=== PATIENT | male | born 1985 | race Caucasian/White ===

== ENCOUNTER 2020-12-11 01:04 | Observation (INO) | payer OTHER ==
[~2020-12-11] VITALS: Ht 182.9 cm; Wt 129.3 kg
--- NOTE | ~2020-12-11 | PROC ---
[facility] [address] [place] [address] PROCEDURE REPORT Name: GAUDENCIO ROSS Room: [address] Maxine Dover#: [id number] Admission: 12/11/20 Attend Phys: Diogenes Ambrocio Discharge: 12/12/20 Date of : 83 Report #: [id number] THIS REPORT FOR: cc: Marjorie Erickson MD, Jayne MD [facility],Medical Records Staff ~ For GI report, please see the Provation report in [employer] content. By: [id number] Records Staff CAYETANO /MARISA
[2020-12-11 01:23] VITALS: BP 161/99
[2020-12-11 01:58] LABS: ABSOLUTE LYMPHOCYTES 1.9 thou/uL (0.8-5.3); ABSOLUTE MONOCYTES 0.6 thou/uL (0.0-1.2); ABSOLUTE NEUTROPHILS 4.5 thou/uL (1.6-8.1); BASOPHILS 0.5 %; EOSINOPHILS 0.4 %; HEMATOCRIT 48.7 % (42.0-52.0); HEMOGLOBIN 16.7 gm/dL (14.0-18.0); LYMPHOCYTES 27.1 %; MCH 31.1 pg (26.0-34.0); MCHC 34.3 g/dL (28.0-37.0); MCV 90.9 fL (80.0-100.0); MPV 8.2 fl. (7.2-11.1); NUCLEATED RBCS 0 /100WBC; PLATELET COUNT* 311 thou/uL (150-400); RBC 5.35 mil/uL (4.50-6.00); RDW-CV 13.3 % (10.5-14.5); WBC 7.1 thou/uL (4.0-11.0)
[2020-12-11 01:58] LABS: URINE BILIRUBIN NEGATIVE (Negative); URINE BLOOD NEGATIVE (Negative); URINE CLARITY CLEAR; URINE COLOR STRAW; URINE GLUCOSE-RANDOM NEGATIVE (Negative); URINE KETONES NEGATIVE (Negative); URINE LEUKOCYTES-REFLEX NEGATIVE (Negative); URINE NITRITE-REFLEX NEGATIVE (Negative); URINE PROTEIN NEGATIVE (Negative); URINE SPECIFIC GRAVITY <= 1.005 (1.005-1.030); URINE UROBILINOGEN 0.2 E.U./dl (0.2-1.0)
[2020-12-11 02:01] LABS: CALCIUM 9.6 mg/dL (8.5-10.1); CREATININE 0.9 mg/dL (0.6-1.3); POTASSIUM 3.7 mmol/L (3.5-5.1)
[2020-12-11 03:11] LABS: AMP/METHAMP Negative (Negative); BARBITURATES Negative (Negative); BENZODIAZEPINES Negative (Negative); COCAINE Negative (Negative); METHADONE Negative (Negative); OPIATES Negative (Negative); PCP Negative (Negative); THC Negative (Negative)
[2020-12-11 04:08] LABS: ALBUMIN 4.3 g/dL (3.4-5.0); DIRECT BILIRUBIN 0.1 mg/dL (<0.1-0.3); TOTAL BILIRUBIN 0.6 mg/dL (<0.1-1.0); TOTAL PROTEIN 8.5 g/dL (6.4-8.2)
[2020-12-11 06:10] VITALS: BP 128/74
[2020-12-11 06:50] VITALS: BP 154/96
--- NOTE | 2020-12-11 07:37 | NUR ---
PATIENT ARRIVED ON FLOOR FROM ER ABOUT 0640. ADMISSION HISTORY AND ASSESSMENT WAS DONE IN ER PRIOR TO COMING TO THE FLOOR. PATIENT SETTLED IN ROOM AND ISTRUCTED TO CALL FOR HELP WHEN NEEDED. WILL CONTINUE TO MONITOR.
[2020-12-11 08:00] VITALS: BP 162/98
[2020-12-11 10:17] LABS: ABSOLUTE BASOPHILS 0.1 thou/uL (0.0-0.2); ABSOLUTE EOSINOPHILS 0.1 thou/uL (0.0-0.7); ABSOLUTE LYMPHOCYTES 2.3 thou/uL (0.8-5.3); ABSOLUTE MONOCYTES 0.7 thou/uL (0.0-1.2); ABSOLUTE NEUTROPHILS 3.1 thou/uL (1.6-8.1); BASOPHILS 0.9 %; HEMATOCRIT 45.5 % (42.0-52.0); HEMOGLOBIN 15.2 gm/dL (14.0-18.0); LYMPHOCYTES 37.4 %; MCH 30.5 pg (26.0-34.0); MCHC 33.5 g/dL (28.0-37.0); MCV 91.1 fL (80.0-100.0); MONOCYTES 10.6 %; MPV 8.1 fl. (7.2-11.1); NUCLEATED RBCS 0 /100WBC; PLATELET COUNT* 278 thou/uL (150-400); POLYS 50.1 %; RDW-CV 13.3 % (10.5-14.5); WBC 6.2 thou/uL (4.0-11.0)
[2020-12-11 10:29] LABS: ALBUMIN 3.9 g/dL (3.4-5.0); CALCIUM 8.8 mg/dL (8.5-10.1); CREATININE 0.8 mg/dL (0.6-1.3); POTASSIUM 3.7 mmol/L (3.5-5.1); TOTAL BILIRUBIN 0.7 mg/dL (<0.1-1.0); TOTAL PROTEIN 7.7 g/dL (6.4-8.2)
--- NOTE | 2020-12-11 14:23 | NUR ---
Pt is A&O. Resides at home with fiance. Independent. No DME. No hx of HH or SNF. Goal is home at dc, no needs at dc. Med Assist to screen for [facility]
[2020-12-11 16:10] VITALS: BP 169/110
[2020-12-11 17:13] LABS: % SATURATION 52 % (20-39); IRON 174 ug/dL (50-175)
--- NOTE | 2020-12-11 18:40 | NUR ---
PT ALERT AND ORIENTED X 4. PT TOLERATING PO INTAKE WITHOUT NAUSEA. PT GIVEN PRN PAIN MEDS ORDERED. PT STEADY WITHOUT ASSIST. IV FLUIDS REMAIN INFUSING. CALL LIGHT WITHIN REACH. WILL CONTINUE TO MONITOR.
[2020-12-11 22:00] VITALS: BP 158/90
[2020-12-12 04:55] LABS: ABSOLUTE EOSINOPHILS 0.1 thou/uL (0.0-0.7); ABSOLUTE LYMPHOCYTES 1.5 thou/uL (0.8-5.3); ABSOLUTE MONOCYTES 0.6 thou/uL (0.0-1.2); BASOPHILS 0.8 %; EOSINOPHILS 1.5 %; HEMATOCRIT 42.4 % (42.0-52.0); HEMOGLOBIN 14.4 gm/dL (14.0-18.0); LYMPHOCYTES 29.4 %; MCHC 33.8 g/dL (28.0-37.0); MCV 91.5 fL (80.0-100.0); MONOCYTES 11.3 %; MPV 8.2 fl. (7.2-11.1); NUCLEATED RBCS 0 /100WBC; PLATELET COUNT* 250 thou/uL (150-400); RBC 4.64 mil/uL (4.50-6.00); RDW-CV 13.2 % (10.5-14.5); WBC 5.2 thou/uL (4.0-11.0)
[2020-12-12 05:26] LABS: ALBUMIN 3.5 g/dL (3.4-5.0); CALCIUM 8.3 mg/dL (8.5-10.1); CREATININE 1.1 mg/dL (0.6-1.3); POTASSIUM 3.7 mmol/L (3.5-5.1); TOTAL BILIRUBIN 0.7 mg/dL (<0.1-1.0); TOTAL PROTEIN 6.9 g/dL (6.4-8.2)
--- NOTE | 2020-12-12 05:49 | NUR ---
PATIENT SLEPT PART OF THE NIGHT. IV REMAINS SALINE LOCKED. PATIENT WAS GIVEN PAIN MEDS NEEDED WITH SOME RELIEF. PATIENT TOLERATING REGULAR DIET. WILL CONTINUE TO MONITOR.
[2020-12-12 07:14] LABS: ESR (SEDRATE) 2 mm/hr (0-15)
--- NOTE | 2020-12-12 12:11 | NUR ---
Pt to have EGD today, GI following. Replete electrolytes. Continue IV pain meds and abx. Per Med Assist, Pt does not qualify for [facility].
[2020-12-12 13:09] LABS: CERULOPLASMIN 21.8 mg/dL (16.0-31.0)
[2020-12-12] MEDS ORDERED: PROTONIX40 M2 PO (14:28)
[2020-12-12] MEDS ORDERED: OXYCODONE HCL 55 MG PO ×3 (14:28→19:47)
[2020-12-12] MEDS ORDERED: ONDANSETRON HCL4 M2 PO (14:28)
[2020-12-12] MEDS ORDERED: ULTRAM50 MG PO (14:28)
[2020-12-12] MEDS ORDERED: CARAFATE1 GM PO (14:28)
[2020-12-12 17:32] VITALS: BP 152/109; BP 158/57
[2020-12-12 18:06] LABS: HEPATITIS B SURFACE AG Negative (Negative)
[2020-12-12 18:57] VITALS: BP 158/57
[2020-12-12 19:07] LABS: ANA INTERPRETATION Negative (())
[2020-12-12 20:08] VITALS: BP 158/57
--- NOTE | 2020-12-12 21:04 | NUR ---
Pt A&o x4 for entire shift. Vital signs stable. Pt pleasant with staff. Pt off unit for EGD this afternoon and returned around 1500. Pt given meds per MAR. Pt wants to go home this evening. Pt voiced concerns about pharmacy closing before he is able to get there. Oxycodone sent to [facility] on [address] in [place]. This nurse called and cancelled other orders sent to [facility] in [place]. Pt left unit ambulating with steady gait.
== END 2020-12-12 20:00 | disposition home or self-care (01) ==
LOC: M.ERS 01:04 → M.TBA-ER 04:34 → M.ORTHSURG 06:26
PROVIDERS: Emergency Medicine; Internal Medicine; Internal Medicine Gastroenterology; ADMIT Internal Medicine; ATTEND Internal Medicine
DX: K52.9 Noninfective gastroenteritis and colitis, unspecified (principal); K29.70 Gastritis, unspecified, without bleeding; Z20.822 Contact with and (suspected) exposure to COVID-19; R16.0 Hepatomegaly, not elsewhere classified; K76.0 Fatty (change of) liver, not elsewhere classified; I10 Essential (primary) hypertension; K21.00 Gastro-esophageal reflux disease with esophagitis, without bleeding; K44.9 Diaphragmatic hernia without obstruction or gangrene; Z79.899 Other long term (current) drug therapy; Z87.442 Personal history of urinary calculi

== ENCOUNTER 2020-12-16 23:00 | Emergency (ER) | payer OTHER ==
[~2020-12-16] VITALS: Ht 180.3 cm; Wt 129.3 kg
[~2020-12-16 23:00] MED LIST: CARAFATE1 GM PO; ONDANSETRON HCL4 M2 PO; OXYCODONE HCL 55 MG PO; PROTONIX40 M2 PO; ULTRAM50 MG PO
[2020-12-16 23:42] LABS: URINE BILIRUBIN NEGATIVE (Negative); URINE BLOOD NEGATIVE (Negative); URINE CLARITY CLEAR; URINE COLOR YELLOW; URINE GLUCOSE-RANDOM NEGATIVE (Negative); URINE KETONES NEGATIVE (Negative); URINE LEUKOCYTES-REFLEX NEGATIVE (Negative); URINE NITRITE-REFLEX NEGATIVE (Negative); URINE PROTEIN NEGATIVE (Negative); URINE SPECIFIC GRAVITY <= 1.005 (1.005-1.030); URINE UROBILINOGEN 0.2 E.U./dl (0.2-1.0)
[2020-12-16 23:50] LABS: ABSOLUTE LYMPHOCYTES 1.8 thou/uL (0.8-5.3); ABSOLUTE MONOCYTES 0.6 thou/uL (0.0-1.2); ABSOLUTE NEUTROPHILS 4.8 thou/uL (1.6-8.1); BASOPHILS 0.6 %; EOSINOPHILS 0.4 %; HEMATOCRIT 48.9 % (42.0-52.0); HEMOGLOBIN 16.8 gm/dL (14.0-18.0); LYMPHOCYTES 25.1 %; MCHC 34.3 g/dL (28.0-37.0); MCV 90.5 fL (80.0-100.0); MONOCYTES 7.6 %; MPV 8.4 fl. (7.2-11.1); NUCLEATED RBCS 0 /100WBC; PLATELET COUNT* 345 thou/uL (150-400); POLYS 66.3 %; RBC 5.41 mil/uL (4.50-6.00); RDW-CV 12.9 % (10.5-14.5); WBC 7.3 thou/uL (4.0-11.0)
[2020-12-17 00:04] LABS: CALCIUM 9.4 mg/dL (8.5-10.1); POTASSIUM 3.8 mmol/L (3.5-5.1)
[2020-12-17 00:08] LABS: ALBUMIN 4.2 g/dL (3.4-5.0); TOTAL BILIRUBIN 0.3 mg/dL (<0.1-1.0); TOTAL PROTEIN 8.4 g/dL (6.4-8.2)
[2020-12-17] MEDS ORDERED: LISINOPRIL-HCT1 EAC1 PO (00:49)
[2020-12-17 01:18] VITALS: BP 139/89
== END 2020-12-17 01:18 | disposition home or self-care (01) ==
LOC: M.ERS 23:00
PROVIDERS: Personal Emergency Response Attendant
DX: K26.9 Duodenal ulcer, unspecified as acute or chronic, without hemorrhage or perforation (principal); I16.0 Hypertensive urgency; I10 Essential (primary) hypertension; Z87.442 Personal history of urinary calculi